=== PATIENT | female | born 1955 | race Caucasian/White ===

== ENCOUNTER 2023-06-02 06:03 | Observation (INO) | payer MEDICARE ==
[2023-06-02] MEDS ORDERED: Lidocaine 1% MPF 2 ML VIAL ONE (06:33)
[2023-06-02] MEDS ORDERED: CEFAZOLIN 2 GM VIAL ONE (06:33)
[2023-06-02] MEDS ORDERED: Sodium Chloride 0.9% 100 ML ONE (06:34)
[2023-06-02] MEDS ORDERED: Thrombin 5000 UNITS/5 ML VIAL ONE (06:47)
[2023-06-02] MEDS ORDERED: Ondansetron PF 4 MG/2 ML Vial ONE ×2 (07:01→10:28)
[2023-06-02] MEDS ORDERED: Lidocaine 1% PF 5 ML VIAL ONE (07:01)
[2023-06-02] MEDS ORDERED: PROPOFOL 20 ML ONE (07:02)
[2023-06-02] MEDS ORDERED: Rocuronium Bromide 10 MG/ML (10ML VIAL) ONE (07:02)
[2023-06-02] MEDS ORDERED: Dexamethasone 20 MG/5 ML VIAL ONE (07:19)
[2023-06-02] MEDS ORDERED: fentaNYL PF 100 MCG/2 ML SYRINGE ONE ×3 (07:19→10:54)
[2023-06-02] MEDS ORDERED: MINERAL OIL/WHITE PETROLATUM 3.5 GM TUBE ONE (07:26)
[2023-06-02] MEDS ORDERED: Midazolam HCl 2 mg/2 ml Vial ONE (07:26)
[2023-06-02] MEDS ORDERED: PHENYLEPHRINE-NS 100 MCG/ML 10 ML SYRINGE ONE (07:57)
[2023-06-02] MEDS ORDERED: SUGAMMADEX SODIUM 200 MG/2 ML VIAL ONE (09:28)
[2023-06-02] MEDS ORDERED: Meperidine HCl/PF 25 MG/ML VIAL SLOW IVP PRN (09:30)
[2023-06-02] MEDS ORDERED: Morphine Sulfate 2 MG/ML SYRINGE SLOW IVP PRN (09:30)
[2023-06-02] MEDS ORDERED: Ondansetron HCl/PF 4 MG/2 ML Vial IVP PRN (09:30)
[2023-06-02] MEDS ORDERED: Promethazine HCl 25 MG/ML VIAL IM PRN (09:30)
[2023-06-02] MEDS ORDERED: HYDROmorphone 2 MG/ML VIAL SLOW IVP PRN (09:30)
[2023-06-02] MEDS ORDERED: Ondansetron PF 4 MG/2 ML Vial IVP PRN (10:05)
[2023-06-02] MEDS ORDERED: Milk Of Magnesia 30 ML UDCUP PO PRN (10:05)
[2023-06-02] MEDS ORDERED: Acetaminophen 325 MG TAB PO PRN (10:05)
[2023-06-02] MEDS ORDERED: Acetaminophen/Codeine 30-300mg Tablet PO PRN (10:05)
[2023-06-02] MEDS ORDERED: Morphine 2 MG/ML VIAL SLOW IVP PRN (10:05)
[2023-06-02] MEDS ORDERED: diphenhydrAMINE 25 MG CAP PO PRN (10:05)
[2023-06-02] MEDS ORDERED: Benzocaine/Menthol 1 LOZ LOZ PO PRN (10:07)
[2023-06-02] MEDS ORDERED: Phenol 177 ML BOT PO PRN (10:07)
[2023-06-02] MEDS ORDERED: hydrALAZINE 20 MG/ML VIAL SLOW IVP PRN (10:07)
[2023-06-02] MEDS ORDERED: HYDROmorphone 0.5 MG/0.5 ML SYRINGE ONE ×2 (10:31→10:44)
[2023-06-02] MEDS: Cyclobenzaprine 10 MG TAB PO PRN ×2 (12:40→20:30)
[2023-06-02 12:43] VITALS: BMI 23.9
[2023-06-02] MEDS: HYDROcodone/Acetaminophen 7.5/325 mg Tablet PO PRN ×2 (16:30→23:56)
[2023-06-02] MEDS: CEFAZOLIN 2 GM in Sodium Chloride 0.9% 100 ML IVPB SCH ×2 (16:31→23:56)
[2023-06-02] MEDS: Sodium Chloride 0.9% 1,000 ML IV SCH ×2 (19:46→23:56)
[2023-06-02] MEDS: cycloSPORINE 0.05% Ophthalmic Droperette EA EYE SCH (20:32)
[2023-06-03] MEDS ORDERED: Levothyroxine Sodium 88 MCG TAB PO SCH (06:00)
[2023-06-03] MEDS: HYDROcodone/Acetaminophen 7.5/325 mg Tablet PO PRN ×2 (06:27→12:20)
[2023-06-03] MEDS ORDERED: Estradiol 1 MG TAB PO SCH (09:00)
[2023-06-03] MEDS ORDERED: Progesterone,Micronized 100 MG CAP PO SCH (09:00)
[2023-06-03] MEDS ORDERED: Gabapentin 400 MG CAP PO SCH (09:00)
[2023-06-03] MEDS: CEFAZOLIN 2 GM in Sodium Chloride 0.9% 100 ML IVPB SCH (09:12)
[2023-06-03] MEDS: Cyclobenzaprine 10 MG TAB PO PRN (09:12)
[2023-06-03] MEDS: cycloSPORINE 0.05% Ophthalmic Droperette EA EYE SCH (09:24)
[2023-06-03 13:46] VITALS: BP 138/84; TEMP 98
[2023-06-03] MEDS: Sodium Chloride 0.9% 1,000 ML IV SCH (15:34)
== END 2023-06-03 14:00 | disposition home or self-care (01) ==
LOC: SDC 06:03 → SURG A 12:06
PROVIDERS: ADMIT Surgery; ATTEND Surgery
PROC: 0RG10K1 Fusion of Cervical Vertebral Joint with Nonautologous Tissue Substitute, Posterior Approach, Posterior Column, Open Approach (ICD-10-PCS; principal; 2023-06-02)
DX: M50.122 Cervical disc disorder at C5-C6 level with radiculopathy (principal); M48.02 Spinal stenosis, cervical region; F10.90 Alcohol use, unspecified, uncomplicated; Z88.8 Allergy status to other drugs, medicaments and biological substances; Z88.1 Allergy status to other antibiotic agents; Z87.891 Personal history of nicotine dependence
CPT/HCPCS: 20930; 20936; 22551; 22845; 22853; C1713 ×5; J1100; J1170; J2250; J2272; J2405; J2704; J3490; J7050

== ENCOUNTER 2023-12-21 06:28 | Day surgery (SDC) | payer MEDICARE ==
[2023-12-18 14:24] VITALS: BMI 23.3
[2023-12-21] MEDS ORDERED: Famotidine/PF 20 mg/2ml Vial ONE (07:27)
[2023-12-21] MEDS ORDERED: Midazolam HCl 2 mg/2 ml Vial ONE (07:27)
[2023-12-21] MEDS ORDERED: Dexamethasone 20 MG/5 ML VIAL ONE (07:37)
[2023-12-21] MEDS ORDERED: Ondansetron PF 4 MG/2 ML Vial ONE (07:37)
[2023-12-21] MEDS ORDERED: SUGAMMADEX SODIUM 200 MG/2 ML VIAL ONE (07:37)
[2023-12-21] MEDS ORDERED: Lidocaine 1% PF 5 ML VIAL ONE (07:37)
[2023-12-21] MEDS ORDERED: PROPOFOL 20 ML ONE (07:37)
[2023-12-21] MEDS ORDERED: Rocuronium Bromide 10 MG/ML (10ML VIAL) ONE (07:37)
[2023-12-21] MEDS ORDERED: fentaNYL PF 100 MCG/2 ML SYRINGE ONE (07:37)
[2023-12-21] MEDS ORDERED: Iopamidol 30 ML ONE (07:41)
[2023-12-21] MEDS ORDERED: Glucagon 1 MG/ML KIT ONE (07:41)
[2023-12-21] MEDS ORDERED: Indomethacin 50 MG SUPP ONE (07:46)
[2023-12-21] MEDS ORDERED: PHENYLEPHRINE-NS 100 MCG/ML 10 ML SYRINGE ONE (08:16)
== END 2023-12-21 10:57 | disposition home or self-care (01) ==
LOC: SDC 06:28
PROVIDERS: ATTEND Internal Medicine
PROC: 0D998ZX Drainage of Duodenum, Via Natural or Artificial Opening Endoscopic, Diagnostic (ICD-10-PCS; principal; 2023-12-21)
PROC: 0FC98ZZ Extirpation of Matter from Common Bile Duct, Via Natural or Artificial Opening Endoscopic (ICD-10-PCS; 2023-12-21)
DX: K80.50 Calculus of bile duct without cholangitis or cholecystitis without obstruction (principal); K21.9 Gastro-esophageal reflux disease without esophagitis; K29.50 Unspecified chronic gastritis without bleeding; Z79.899 Other long term (current) drug therapy; Z91.011 Allergy to milk products; Z88.1 Allergy status to other antibiotic agents; Z91.048 Other nonmedicinal substance allergy status; Z88.6 Allergy status to analgesic agent; Z90.89 Acquired absence of other organs; Z90.710 Acquired absence of both cervix and uterus; Z90.49 Acquired absence of other specified parts of digestive tract; Z98.890 Other specified postprocedural states; Z87.891 Personal history of nicotine dependence
CPT/HCPCS: 43239; 43262; 43264; C1725; J1100; J2250; J2405; J2704; Q9967; S0028; 88305; J1611